=== PATIENT | male | born 2000 | race Caucasian/White ===

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

== ENCOUNTER 2025-08-07 12:35 | Outpatient (CLI) | payer OTHER, SELFPAY ==
--- OUTSIDE RECORDS SUMMARY | 2025-08-07 12:43 | XMS_ITS | Clinical Summary ---
Author Organization [facility] Address [address] [place] [address] Care Team Providers Care [employer] Name Role Phone Agusto Covington MD Primary Care Provider [phone] Source Comments [facility],non-owned Affiliates and Associated Physician Practices is amultiple site organization consisting of ambulatory clinics and hospital sitesin [place], [place], [place] and [place]. This disclosure is being madepursuant to the Care Everywhere program and may not contain all information available regarding this patient. Last updated 18.[facility] Allergies No known active allergies Medications * Be aware that medications may not be up to date on this document. Alwaysverify current medications with the patient. Probiotic Product (PROBIOTIC-10) CHEW Take by mouth once daily Active Multiple Vitamins-Mineral s (MULTI-VITAMIN GUMMIES PO) Active Active Problems Problem Noted Date Diagnosed Date Abdominal pain, generalized 01/15/2020 Abnormal weight loss 01/15/2020 Proximal phalanx fracture of finger 02/06/2015 Resolved Problems Problem Noted Date Diagnosed Date Resolved Date Diarrhea 01/15/2020 02/27/2020 Family History Medical History Relation Name Comments Other Maternal Aunt Gluten intoler ance Crohn's Disease Neg Hx Ulcerative Colitis Neg Hx Relation Name Status Comments Maternal Aunt Social History Tobacco Use Types Packs/Day Years Used Date Smoking Tobacco: Some Days Smokeless Tobacco: Never Comments:non smoking househo ld Alcohol Use Standard Drinks/Week Comments Yes 0 (1 standard drink = 0.6 oz pur e alcohol) Sex and Gender Information Value Date Recorded Sex Assigned at Not on file Legal Sex Male 11:43 AM CDT Gender Identity Not on file Sexual Orientation Not on file Last Filed Vital Signs Vital Sign Reading Time Taken Comments Blood Pressure 115/62 01/30/2020 3:15 PM CDT Pulse 72 01/30/2020 3:15 PM CDT Temperature 36.7 C (98 F) 01/30/2020 2:30 PM CDT Respiratory Rate 16 01/30/2020 3:15 PM CDT Oxygen Saturation 99% 01/30/2020 3:15 PM CDT Inhaled Oxygen Concentration - - Weight 63.6 kg (140 lb 3.4 oz) 01/30/2020 12:28 PM CDT Height 173.5 cm (5' 8.31) 01/30/2020 12:28 PM C DT Body Mass Index 21.13 01/30/2020 12:28 PM CDT Plan of Treatment Health Maintenance Due Date Last Done Comments HIV SCREENING 2017 HPV VACCINE (1 - Male 3-dose series) 2017 MENINGOCOCCAL (Group B) VACC INE SHARED DECISION-MAKING (1 of 2 - Standard) 2018 HEPATITIS C SCREENING 04/03/2020 DTAP/TDAP/TD VACCINES (1 - Tdap) 2021 HEPATITIS B VACCINE (1 of 3 - 19+ 3-dose series) 2021 DEPRESSION SCREENING 11/21/2024 COVID-19 VACCINE (1 - 2023-2 5 season) 2025 INFLUENZA VACCINE (#1) 2025 ZOSTER VACCINE (1 of 2) 2052 HIB VACCINE Aged Out No longer eligi ble based on patient's age to complete this topic MENINGOCOCCAL GROUPS A/C/Y/W VACCINE Aged Out No longer eligible b ased on patient's age to complete this topic PNEUMOCOCCAL VACCINE Aged Out No long er eligible based on patient's age to complete this topic Insurance [facility] * Guarantor: PHIL VALENTIN Account Type Relation to Patient Date of Phone Billing Address Personal/Family Father [facility] Member Subscriber Plan / Payer (Ef fective 2019-Present) Name:Andrews Valentin Relation to Subscriber:Child Name:PHIL VALENTIN Date of :1972 (Home) Address: [address] [place] [id number] Payer ID:[id number] (NAIC) Type:PPO Address: [place] [phone] Care Teams [employer] Relationship Specialty Start Date End Date Agusto Covington MD [address] [place] [address] PCP - General Pediatrics 02/06/15
[2025-08-08 18:34] LABS: HSV 1 IgG, Type Spec Non Reactive (Non Reactive); HSV 2 IgG, Type Spec Reactive (Non Reactive)
== END 2025-08-07 12:36 | disposition home or self-care (01) ==
PROVIDERS: PCP Family Medicine; Visit Provider Nurse Practitioner Family
DX: A60.02 Herpesviral infection of other male genital organs (principal)
CPT/HCPCS: 86695; 86696